=== PATIENT | female | born 1990 | race Two or more races ===

== ENCOUNTER 2025-01-03 19:42 | Emergency (ER) | payer BC, MEDICAID, SELFPAY ==
[2025-01-03 19:43] VITALS: BMI 34.9
[2025-01-03 20:34] VITALS: BP 133/85; PULSE 86; RESP 18; TEMP 36.8; O2SAT 100
--- NOTE | 2025-01-03 20:41 | XR_ITS ---
Examination: Abdomen sonogram, Limited Date and time of exam: January 03, 2025 2055 hrs. Indications: Chest pain epigastric pain beginning 2 months ago Technique: Real-time dukes scale transabdominal sonographic images of the upper abdomen obtained. Findings: Normal gallbladder Normal common bile duct 0.3 cm Pancreatic head 2.7 cm Liver 17.6 cm fatty infiltration no focal liver lesions Normal hepatopedal portal venous flow Patent IVC Impression: Normal gallbladder Mild hepatomegaly fatty liver
--- NOTE | 2025-01-03 20:42 | PD.EDRME ---
Rapid Medical Screening Exam RME Arrival date/time: 01/03/25 19:42 34-year-old female presents emergency department complaining of epigastric pain with nausea that radiates towards her back and is 10 out of 10. Chief Complaint: Chest Pain Time Seen by Provider: 01/03/25 19:50 Vital signs: Vital Signs Temperature 98.3 F 01/03/25 20:34 Pulse Rate 86 01/03/25 20:34 Respiratory Rate 18 01/03/25 20:34 Blood Pressure 133/85 H 01/03/25 20:34 Pulse Oximetry (%) 100 01/03/25 20:34 Oxygen Delivery Method Room Air 01/03/25 20:34 Vital signs reviewed by provider: Yes
[2025-01-03 21:25] LABS: Basophils % (Auto) 0 % (0-2.5); Eosinophils # (Auto) 0.1 Thou/mm3 (0.0-0.5); Eosinophils % (Auto) 1 % (0-10); Hemoglobin 12.2 g/dL (12.0-16.0); Immature Granulocytes % (Auto) 0 % (0-0); Immature Granulocytes Auto 0.02 Thou/mm3 (0.00-0.00); Lymphocytes # (Auto) 2.4 Thou/mm3 (1.0-4.8); Lymphocytes % (Auto) 23 % (10-50); Mean Corpuscular HGB Conc 32.1 g/dl (31.0-37.0); Mean Corpuscular Hemoglobin 24.3 pg (25.0-35.0); Mean Corpuscular Volume 76 fL (80-100); Monocytes # (Auto) 0.7 Thou/mm3 (0.0-0.8); Monocytes % (Auto) 7 % (0-12); Neutrophils % (Auto) 68 % (37-80); Nucleated Red Blood Cell % 0 /100 WBC (0); Platelet Count 303 Thou/mm3 (140-440); RDW Standard Deviation 41.7 fL (36.4-46.3); Red Blood Count 5.03 Miln/mm3 (4.00-5.20); White Blood Count 10.2 Thou/mm3 (3.6-11.0)
[2025-01-03 21:40] LABS: HCG,Qualitative Serum Negative
--- NOTE | 2025-01-03 21:43 | PC.NURSE ---
no answer x 1 at 0320. checked lobby and outside.
[2025-01-03 21:44] LABS: Alanine Aminotransferase 19 U/L (10-49); Albumin, Serum 5.1 gm/dL (3.5-5.0); Albumin/Globulin Ratio 1.6 (1.2-2.2); Alkaline Phosphatase 77 U/L (46-116); Anion Gap 8 (7-16); Aspartate Amino Transferase 20 U/L (0-34); BUN/Creatinine Ratio 17 Ratio (12-20); Bilirubin,Total 0.3 mg/dL (0.3-1.2); Blood Urea Nitrogen 10 mg/dL (9-23); Calcium 10.2 mg/dL (8.3-10.6); Calcium (Corrected) 10.2 mg/dL (8.5-10.1); Carbon Dioxide 27.6 mMol/L (20.0-31.0); Chloride 106 mMol/L (98-107); Creatinine (Component) 0.6 mg/dL (0.6-1.3); Estimated Creatinine Clearance 153.6 mL/min (>60); Globulin 3.2 gm/dL (2.3-3.5); Glucose 109 mg/dL (74-106); Lipase 39 U/L (12-53); Osmolality,Calculated 283 (275-295); Sodium 142 mMol/L (136-145); Total Protein 8.3 gm/dL (5.7-8.2); Troponin I < 0.002 ng/mL (0.0-0.045); eGFR > 60 See Note
[2025-01-03] MEDS: ONDANSETRON ODT 4 MG TABRAP PO (21:46)
[2025-01-03] MEDS: KETOROLAC INJ 60 MG/2 ML VIAL 30 MG IM (21:46)
[2025-01-03] MEDS: LIDOCAINE VISCOUS 2% 15 ML UDC PO (22:04)
[2025-01-03] MEDS: MG HYD/AL HYD/SIME (Maalox Reg) SUSP 30 ML UDC PO (22:04)
[2025-01-03 22:47] LABS: Collection Type, Urine Clean Catch
[2025-01-04 00:21] LABS: Bilirubin,Urine Negative (Negative); Blood,Urine 2+ (Negative); Clarity,Urine Clear (Clear/Hazy); Color,Urine Lt-Yellow (Lt Yel-Yel); Culture Indicated,Urine Not Indicated; Glucose, Urine Negative (Negative); Ketones,Urine Negative (Negative); Leukocyte Esterase,Urine Negative (Negative); Nitrite,Urine Negative (Negative); PH,Urine 6.5 (5.0-7.0); Protein,Urine Negative (Neg - Trace); RBC,Urine 9 /hpf (0-3); Specific Gravity,Urine 1.012 (1.001-1.035); Squamous Epithelial Cell,Urine 3 /hpf (0-5); Urobilinogen,Urine Negative mg/dL (0.0-1.0); WBC,Urine 1 /hpf (0-5)
--- NOTE | 2025-01-04 00:23 | PD.EDCHEST ---
ED Chest Pain RME/HPI General Chief Complaint: Chest Pain Stated Complaint: CHEST PAIN X 2DAY Time Seen by Provider: 01/03/25 19:50 Source: patient Arrival date/time: 01/03/25 19:42 34-year-old female presents emergency department complaining of epigastric pain with nausea that radiates towards her back and is 10 out of 10. Patient denies any fever, chills, difficulty breathing, cough, or any other associated symptom. Mode of arrival: ambulatory Limitations: no limitations RME / HPI RME / HPI narrative: 01/03/25 19:42 34-year-old female presents emergency department complaining of epigastric pain with nausea that radiates towards her back and is 10 out of 10. Related Data Home Medications ?Medication ?Instructions ?Recorded ?Confirmed vitamins-iron fumarate 27 1 tab PO QDAY 01/11/19 08/18/20 mg iron-folic acid 0.8 mg tablet ( Vitamin) Previous Rx's ?Medication ?Instructions ?Recorded diphenhydramine HCl 25 mg capsule 25 mg PO Q8H PRN allergic symptoms 10/25/21 (Benadryl) #30 caps ibuprofen 600 mg tablet 600 mg PO Q8H PRN pain #20 tabs 01/04/25 Allergies Allergy/AdvReac Type Severity Reaction Status Date / Time amoxicillin Allergy Intermediate Rash Verified 10/27/21 00:09 Review of Systems Review of Systems Systems Reviewed: All systems reviewed, normal except as documented Constitutional Constitutional: Reports system reviewed and no additional complaints, except as documented, Denies body ache(s), Denies chills and Denies fever(s) Eyes Eyes: Reports system reviewed and no additional complaints, except as documented and Denies change in vision ENT Ears, Nose, Mouth, and Throat: Reports system reviewed and no additional complaints, except as documented, Denies disequilibrium, Denies dizziness, Denies sore throat and Denies vertigo Cardiovascular Cardiovascular: Reports system reviewed and no additional complaints, except as documented, Reports chest pain and Denies dyspnea Respiratory Respiratory: Reports system reviewed and no additional complaints, except as documented, Denies chest congestion, Denies cough and Denies dyspnea Gastrointestinal Gastrointestinal: Reports system reviewed and no additional complaints, except as documented, Reports abdominal pain, Reports nausea and Denies vomiting Musculoskeletal Musculoskeletal: Reports system reviewed and no additional complaints, except as documented, Denies abnormal gait and Denies arthralgias Integumentary/Breasts Skin/Breast: Reports system reviewed and no additional complaints, except as documented, Denies erythema, Denies rash and Denies wounds Neurologic Neurologic: Reports system reviewed and no additional complaints, except as documented, Denies abnormal gait, Denies disequilibrium, Denies dizziness and Denies vertigo Past Medical History Past Medical History NEUROLOGIC: Negative Neurological Disorders CARDIAC: Negative Cardiac Disorders or Congestive Heart Failure RESPIRATORY: Negative Chronic Obstructive Pulmonary Disease (COPD) GASTROINTESTINAL: Negative Gastrointestinal Disorders or Hepatitis GENITOURINARY: Negative Genitourinary Disorders or Renal Disease REPRODUCTIVE: Positive Previous Pregnancies; Negative Endometriosis, Pelvic Inflammatory Disease or Uterine Prolapse MUSCULOSKELETAL: Negative Musculoskeletal Disorders ENDOCRINE: Negative Endocrine Disorders, Diabetes Mellitus Type 1 or Diabetes Mellitus Type 2 HEMATOLOGIC: Negative Blood Disorders OTHER HISTORY: Positive Hospitalization (CHILDBIRTH); Negative Autoimmune Disease, Down Syndrome, Developmental Delay, Falls, Blood Transfusions, Blood Transfusion Reaction, Anesthesia Reactions, Organ Transplant, Chemotherapy, Radiation Therapy, Hyperbaric Therapy, MRSA, VRSA, Vancomycin-Resistant Enterococci, Human Immunodeficiency Virus (HIV), Chicken Pox, Measles, Mumps, Rubella ([place] Measles), Pertussis, Clostridium Difficile or Cancer Family History FAMILY HISTORY: Negative Family Cancer, Family Surgery or Family Anesthesia Reaction Surgical History SURGICAL: Negative Section or Organ Transplant Social History SMOKING STATUS: Never smoker SECOND HAND EXPOSURE: No ED Exam General Limitations: Present no limitations General appearance: Present alert and in no apparent distress Head Head exam: Present atraumatic Eye Eye exam: Present normal appearance, PERRL and EOMI ENT ENT exam: Present normal exam, normal oropharynx and mucous membranes moist Neck Neck exam: Present normal inspection, full ROM and trachea midline Chest Chest inspection: Present normal inspection and symmetric chest wall rise Respiratory Respiratory exam: Present normal lung sounds bilaterally Cardiovascular Cardiovascular exam: Present regular rate, normal rhythm and normal heart sounds Abdominal Exam Abdominal exam: Present soft, tenderness, normal bowel sounds and Camargo's sign Abdominal tenderness: Present RUQ Extremities Exam Extremities exam: Present normal inspection and full ROM Back Exam Back exam: Present normal inspection and full ROM Neurological Exam Neurological exam: Present alert, oriented X3 and CN II-XII intact Psychiatric Psychiatric exam: Present normal affect and normal mood Skin Skin exam: Present warm, dry, intact and normal color Course Quality Measures none Orders Category Date Time Status EKG (ED ONLY) *Do not use* NOW Care 01/03/25 20:41 Completed EKG (ED Only) Stat Exams 01/03/25 20:41 Ordered US gall bladder Stat Exams 01/03/25 20:41 Completed CBC Stat Lab 01/03/25 20:48 Completed CMP [Comprehensive Metabolic Panel] Stat Lab 01/03/25 20:48 Completed HCG,Qualitative Serum Stat Lab 01/03/25 20:48 Completed Lipase Stat Lab 01/03/25 20:48 Completed Troponin I Stat Lab 01/03/25 20:48 Completed Urinalysis, C/S if Indicated Stat Lab 01/03/25 22:30 Completed Ketorolac Inj [Toradol Inj] Med 01/03/25 20:41 Discontinued 30 mg IM X1 ONE Lidocaine 2% Viscous [Xylocaine 2% Viscous] Med 01/03/25 21:55 Discontinued 15 ml PO X1 ONE Ondansetron Odt [Zofran Odt] Med 01/03/25 20:41 Discontinued 4 mg PO X1 ONE mg Hyd/Al Hyd/Marquis Susp [Maalox Susp] Med 01/03/25 21:55 Discontinued 30 ml PO X1 ONE Vital Signs Vital signs: Vital Signs Temperature 98.3 F 01/03/25 20:34 Pulse Rate 86 01/03/25 20:34 Respiratory Rate 18 01/03/25 20:34 Blood Pressure 133/85 H 01/03/25 20:34 Pulse Oximetry (%) 100 01/03/25 20:34 Oxygen Delivery Method Room Air 01/03/25 20:34 100% room air within normal limits Procedures -ED EKG Interpretation #1: Date of EK01/03/25 Time of EK:41 Rate: 78 Interpretation: Interpreted by me EKG Impression: Normal sinus rhythm, No acute ST-T changes, No ectopy, No ischemic changes and Normal QRS Chest Pain MDM Narrative MDM Narrative:: 34-year-old female presents emergency department complaining of epigastric pain with nausea that radiates towards her back and is 10 out of 10. Patient denies any fever, chills, difficulty breathing, cough, or any other associated symptom. CBC was unremarkable for any leukocytosis. CMP was unremarkable for any platelets abnormalities or elevated LFTs. Normal lipase. EKG sinus rhythm with normal troponin. Urinalysis was unremarkable. hCG negative and ultrasound of gallbladder was unremarkable as well. Patient was given pain medication and GI cocktail and reported complete resolution of symptoms. Likely noncardiac chest pain. Instructed patient to follow-up with primary care provider and return immediately to emergency department for any worsening symptoms or as needed. Patient data External records reviewed:: [facility] previous records Clinical information provided by:: patient Social determinants that could affect healthcare access:: none Patient has the following chronic illnesses:: See chart How is presenting disease/condition affected by chronic disease/condition?: uneffected by Evaluation data The following diagnostics were reviewed and interpreted by me:: lab results, radiology exam(s) and EKG tracing(s) Lab and/or radiology exams considered but not ordered:: Ordered Interpretation Summary: Interpreted by me Medications / Prescriptions Medications or Prescriptions considered but not ordered:: Ordered Medication administrations:: Medication Administration History Discontinued Medications Al Hydrox/Mg Hydrox/Simethicone (Mg Hyd/Al Hyd/Marquis (Maalox Reg) Susp 30 Ml Udc) 30 ml PO X1 ONE Stop: 01/03/25 21:56 Last Admin: 01/03/25 22:04 Dose: 30 ml Documented By: HILDA Ketorolac Tromethamine (Ketorolac Inj 60 Mg/2 Ml Vial) 30 mg IM X1 ONE Stop: 01/03/25 20:42 Last Admin: 01/03/25 21:46 Dose: 30 mg Documented By: HILDA Lidocaine HCl (Lidocaine Viscous 2% 15 Ml Udc) 15 ml PO X1 ONE Stop: 01/03/25 21:56 Last Admin: 01/03/25 22:04 Dose: 15 ml Documented By: HILDA Ondansetron HCl (Ondansetron Odt 4 Mg Tabrap) 4 mg PO X1 ONE; Protocol Stop: 01/03/25 20:42 Last Admin: 01/03/25 21:46 Dose: 4 mg Documented By: HILDA Given Consultations Consultation(s) initiated? (list below): No Diagnosis Chest Pain Differential Diagnosis: fracture of rib, pneumothorax, stable angina, unstable angina pectoris, atypical chest pain, st elevation myocardial infarction, costochondritis, chest pain and biliary colic Most likely diagnosis given after review of the tests above:: Noncardiac chest pain Admission Indicated Admission indicated?: not indicated Admission Request Was there a request for admission?: No Disposition Plan Disposition Plan: Discharge Discharge Attestation Discharge Attestation: The patient and all family members were given an opportunity to ask questions and understood the discharge instructions. Discharge instructions specifically effects, indications for sooner follow up or return to the emergency department, and the expected course of current diagnosis. Patient condition: Stable Discharge Plan Plan Patient Disposition: HOME (Self Care) Disposition Comment: Stable Prescriptions/Referrals Prescriptions/Med Rec: New ibuprofen 600 mg tablet 600 mg PO Q8H PRN (Reason: pain) Qty: 20 0RF No Action diphenhydramine HCl [Benadryl] 25 mg capsule 25 mg PO Q8H PRN (Reason: allergic symptoms) Qty: 30 0RF Vitamin 27 mg iron- 0.8 mg Tablet 1 tab PO QDAY Referrals: Rochelle Barrera FNP [Primary Care Provider] - In 1 week Problem List Clinical Impression: Non-cardiac chest pain Patient/Caregiver Discharge Instructions Discharge Activity: activity as tolerated Education Materials: ED Chest Pain, Noncardiac Additional Instructions: Drink plenty of fluids and get plenty of rest. Take ibuprofen or Tylenol as needed for pain. Follow-up with primary care provider 2 to 3 days. Return to emergency department for any worsening symptoms or as needed. Print Language: Greek Stand Alone Forms: [facility]ini Award Info., Patient Portal Info Letter JULIO/CACHORRO Supervising Physician JULIO/CACHORRO Supervising Physician: Dr. Nettles
== END 2025-01-04 00:29 | disposition home or self-care (01) ==
PROVIDERS: Emergency Provider Emergency Medicine; PCP Registered Nurse Community Health
DX: R07.89 Other chest pain (principal); R10.13 Epigastric pain
CPT/HCPCS: 36415; 76705; 80053; 81001; 83690; 84484; 84703; 85025; 93005; 96372; 99283; J1885; J3490; Q0162; A9270